=== PATIENT | female | born 1955 | race Caucasian/White ===

== ENCOUNTER → 2017-07-20 | Outpatient (CLI) | payer OTHER, BC | LOC: MAMMO 08:31 | DX: Z12.31 Encounter for screening mammogram for malignant neoplasm of breast (principal) | CPT/HCPCS: G0202 ==

== ENCOUNTER → 2018-08-28 | Day surgery (SDC) | payer BC | LOC: MSO 08:30 | DX: Z12.11 Encounter for screening for malignant neoplasm of colon (principal); D12.0 Benign neoplasm of cecum; K57.30 Diverticulosis of large intestine without perforation or abscess without bleeding | CPT/HCPCS: 00811; J2704; J7120 ==

== ENCOUNTER → 2018-09-13 | Outpatient (CLI) | payer BC | LOC: MAMMO 08:19 | DX: Z12.31 Encounter for screening mammogram for malignant neoplasm of breast (principal) ==

== ENCOUNTER → 2019-08-08 | Outpatient (CLI) | payer BC | LOC: MAMMO 12:05 | DX: N63.22 Unspecified lump in the left breast, upper inner quadrant (principal) ==

== ENCOUNTER → 2019-08-12 | Outpatient (CLI) | payer BC | LOC: MAMMO 07:03 | DX: M85.80 Other specified disorders of bone density and structure, unspecified site (principal); M81.0 Age-related osteoporosis without current pathological fracture; N63.20 Unspecified lump in the left breast, unspecified quadrant ==

== ENCOUNTER → 2020-09-09 | Outpatient (CLI) | payer BC | LOC: MAMMO 14:19 | DX: Z12.31 Encounter for screening mammogram for malignant neoplasm of breast (principal) ==

== ENCOUNTER → 2021-09-14 | Outpatient (CLI) | payer BC | LOC: MAMMO 12:57 | DX: Z12.31 Encounter for screening mammogram for malignant neoplasm of breast (principal); Z13.820 Encounter for screening for osteoporosis; M85.80 Other specified disorders of bone density and structure, unspecified site ==

== ENCOUNTER → 2023-10-04 | Outpatient (CLI) | payer BC ==
[~2023-10-04] MED LIST: ACETAMINOPHEN325 M1 PO; CALCIUM CARBONATE PO; FOLIC ACID1 MG PO; FUROSEMIDE20 MG PO; LATANOPROST 2.2.5 ML OU; PROLIA60 MG/ML SC; TOPCARE ASPIRIN81 M1 PO; VITAMIN D3125 MC1 PO
== END ==
LOC: MAMMO 14:18
DX: Z12.31 Encounter for screening mammogram for malignant neoplasm of breast (principal); M81.0 Age-related osteoporosis without current pathological fracture

== ENCOUNTER → 2024-10-25 | Outpatient (CLI) | payer BC | LOC: MAMMO 08:26 | DX: Z12.31 Encounter for screening mammogram for malignant neoplasm of breast (principal) ==